=== PATIENT | female | born 1950 | race African-American/Black ===

== ENCOUNTER 2023-04-30 13:00 | Inpatient (IN) | payer OTHER ==
[~2023-04-30] VITALS: Ht 157.5 cm; Wt 65.8 kg
[2023-04-30 13:04] VITALS: BP 181/96; PULSE 79; RESP 17; TEMP 98.1; O2SAT 95
[2023-04-30 13:33] VITALS: O2SAT 95
[2023-04-30 14:22] LABS: BASOPHILS % (AUTO) 0.4 % (0.0-2.0); EOSINOPHILS # (AUTO) 0.1 K/uL (0-0.4); EOSINOPHILS % (AUTO) 1.2 % (0.0-4.0); HEMATOCRIT 42.1 % (36-48); HEMOGLOBIN 13.7 g/dL (12.0-16.0); MEAN CORPUSCULAR HEMOGLOBIN 28 pg (27-31); MEAN CORPUSCULAR HGB CONC 33 g/dL (33-37); MEAN CORPUSCULAR VOLUME 86.3 fL (80-94); MONOCYTES # (AUTO) 0.6 K/uL (0.8-1.0); NEUTROPHILS # (AUTO) 5.3 K/uL (1.8-7.7); NEUTROPHILS % (AUTO) 76.4 % (42.2-75.2); PLATELET COUNT (AUTO) 267 K/uL (140-450); RED BLOOD CELL COUNT(AUTO) 4.88 MIL/uL (4.20-5.40); RED CELL DISTRIBUTION WIDTH 13.4 % (11.6-13.7)
[2023-04-30 14:24] LABS: APPEARANCE,URINE CLEAR (CLEAR); BILIRUBIN,URINE 2+ (NEGATIVE); BLOOD, URINE 1+ (NEGATIVE); COLOR,URINE YELLOW (YELLOW); LEUKOCYTE ESTERASE ,URINE NEGATIVE (NEGATIVE); NITRITE, URINE NEGATIVE (NEGATIVE); PROTEIN,URINE 1+ (NEGATIVE); UGLUCOSE NEGATIVE (NEGATIVE)
[2023-04-30 14:39] LABS: ICTOTEST NEGATIVE (NEGATIVE); RBC,URINE 0-5 /HPF (0-5)
[2023-04-30 14:40] LABS: AMPHETAMINE, URINE NEGATIVE ng/ml (NEG <=1000); BACTERIA,URINE FEW /HPF (None Seen); BARBITURATE, URINE NEGATIVE ng/ml (NEG <=200); BENZODIAZEPINE, URINE NEGATIVE ng/mL (NEG <=200); CANNABINOID, URINE NEGATIVE ng/mL (NEG <=50); COCAINE, URINE NEGATIVE ng/mL (NEG <=300); OPIATE, URINE NEGATIVE ng/mL (NEG <=2000); PHENCYCLIDINE SCREEN,URINE NEGATIVE ng/mL (NEG <=25); SQUAMOUS EPITHELIAL CELL,UR 0-3 (FEW) /LPF (0-3 (FEW))
[2023-04-30 14:45] LABS: INR 1.03 (0.8-1.2); PARTIAL THROMBOPLASTIN TIME 27.1 secs (22-35.6); PROTHROMBIN TIME 10.8 secs (10.8-13.4)
[2023-04-30 15:04] LABS: LACTIC ACID 1.3 mmol/L (0.4-2.0)
[2023-04-30 15:24] LABS: ACETAMINOPHEN < 0.5 ug/ml (10-30); ALANINE AMINOTRANSFERASE 825 U/L (12-78); ALBUMIN 3.6 g/dL (3.4-5.0); ALCOHOL, BLOOD < 3 mg/dL (<10); ALKALINE PHOSPHATASE 100 U/L (50-136); ANION GAP 16.6 (8-16); ASPARTATE AMINOTRANSFERASE 280 U/L (15-37); CARBON DIOXIDE 25.6 mmol/L (21-32); CHLORIDE 101 mmol/L (98-107); CREATINE KINASE, TOTAL 114 U/L (26-192); CREATININE 0.7 mg/dL (0.6-1.3); GLUCOSE 91 mg/dL (74-106); MAGNESIUM 1.8 mg/dL (1.8-2.4); PHOSPHORUS 3.1 mg/dL (2.5-4.9); POTASSIUM 3.2 mmol/L (3.5-5.1); SALICYLATE < 2.8 mg/dL (2.8-20.0); SODIUM SERUM 140 mmol/L (136-145); THYROID STIMULATING HORMONE 0.72 uIU/mL (0.34-3.74); TOTAL PROTEIN, SERUM 7.8 g/dL (6.4-8.2); UREA NITROGEN, BLOOD 20 mg/dL (7-18)
[2023-04-30 15:31] VITALS: O2SAT 95
[2023-04-30 17:31] VITALS: O2SAT 99
[2023-04-30] MEDS: NACL 0.9% 1,000 ML IV SCH (18:52)
[2023-04-30] MEDS ORDERED: ONDANSETRON 4 MG/2 ML VIAL IVP PRN (19:00)
[2023-04-30] MEDS ORDERED: MORPHINE SULFATE 2 MG/ML SYR IVP PRN (19:00)
[2023-04-30] MEDS ORDERED: POTASSIUM CHLORIDE 10 MEQ TABER PO PRN (19:00)
[2023-04-30] MEDS ORDERED: MAG SULF 2000 MG/WATER PREMIX 50 ML IV PRN (19:00)
[2023-04-30] MEDS ORDERED: ACETAMINOPHEN 325 MG TAB PO PRN (19:00)
[2023-04-30] MEDS ORDERED: LORazepam 2 MG/ML VIAL IVP PRN (19:00)
[2023-04-30] MEDS ORDERED: DOCUSATE SODIUM 100 MG GELCAP PO PRN (19:00)
[2023-04-30] MEDS ORDERED: ZOLPIDEM 10 MG TAB PO PRN (19:00)
[2023-04-30 20:55] VITALS: BP 150/62; PULSE 61; RESP 18; TEMP 98.7; O2SAT 97
[2023-05-01 04:00] VITALS: BP 106/80; PULSE 66; RESP 16; TEMP 98.7; O2SAT 97
[2023-05-01] MEDS: NACL 0.9% 1,000 ML IV SCH ×2 (06:43→19:00)
[2023-05-01 06:51] LABS: BASOPHILS % (AUTO) 0.8 % (0.0-2.0); EOSINOPHILS # (AUTO) 0.2 K/uL (0-0.4); EOSINOPHILS % (AUTO) 4.4 % (0.0-4.0); HEMATOCRIT 37.2 % (36-48); LYMPHOCYTES # (AUTO) 1.2 K/uL (2.5-16.5); LYMPHOCYTES % (AUTO) 24.8 % (20.5-51.1); MEAN CORPUSCULAR HEMOGLOBIN 28 pg (27-31); MEAN CORPUSCULAR HGB CONC 32 g/dL (33-37); MEAN CORPUSCULAR VOLUME 86.1 fL (80-94); MONOCYTES # (AUTO) 0.6 K/uL (0.8-1.0); NEUTROPHILS # (AUTO) 2.9 K/uL (1.8-7.7); PLATELET COUNT (AUTO) 250 K/uL (140-450); RED BLOOD CELL COUNT(AUTO) 4.32 MIL/uL (4.20-5.40); RED CELL DISTRIBUTION WIDTH 13.7 % (11.6-13.7); WHITE BLOOD COUNT (AUTO) 4.9 K/uL (4.8-10.8)
[2023-05-01 06:52] LABS: ANION GAP 9.2 (8-16); CALCIUM 9.7 mg/dL (8.5-10.1); CARBON DIOXIDE 30.3 mmol/L (21-32); CHLORIDE 108 mmol/L (98-107); CREATININE 0.6 mg/dL (0.6-1.3); GLUCOSE 136 mg/dL (74-106); POTASSIUM 4.5 mmol/L (3.5-5.1); SODIUM SERUM 143 mmol/L (136-145); UREA NITROGEN, BLOOD 18 mg/dL (7-18)
[2023-05-01 07:11] LABS: BILIRUBIN,DIRECT 0.2 mg/dL (0.0-0.3); TOTAL BILIRUBIN 0.9 mg/dL (0.0-1.0); TOTAL PROTEIN, SERUM 6.7 g/dL (6.4-8.2)
[2023-05-01 08:00] VITALS: BP 150/62; PULSE 64; RESP 18; TEMP 98.7; O2SAT 97; O2SAT 98
[2023-05-01] MEDS: ARIPiprazole 10 MG TAB PO SCH (13:33)
[2023-05-01 16:00] VITALS: BP 110/80; PULSE 70; RESP 18; TEMP 98.5; O2SAT 99
[2023-05-01] MEDS: IBUPROFEN 400 MG TAB PO PRN (16:50)
[2023-05-01] MEDS ORDERED: MAGNESIUM OXIDE 400 MG TAB PO SCH (18:28)
[2023-05-01 20:00] VITALS: BP 146/88; PULSE 65; RESP 18; TEMP 97.7; O2SAT 99
[2023-05-02] MEDS: NACL 0.9% 1,000 ML IV SCH ×2 (03:57→20:31)
[2023-05-02 04:04] VITALS: BP 130/80; PULSE 62; RESP 18; TEMP 97; O2SAT 96
[2023-05-02 06:26] LABS: BASOPHILS % (AUTO) 0.8 % (0.0-2.0); EOSINOPHILS # (AUTO) 0.4 K/uL (0-0.4); EOSINOPHILS % (AUTO) 8.2 % (0.0-4.0); HEMATOCRIT 33.7 % (36-48); HEMOGLOBIN 11.1 g/dL (12.0-16.0); LYMPHOCYTES # (AUTO) 1.6 K/uL (2.5-16.5); LYMPHOCYTES % (AUTO) 36.6 % (20.5-51.1); MEAN CORPUSCULAR HEMOGLOBIN 28 pg (27-31); MEAN CORPUSCULAR HGB CONC 33 g/dL (33-37); MEAN CORPUSCULAR VOLUME 85.9 fL (80-94); MONOCYTES # (AUTO) 0.5 K/uL (0.8-1.0); MONOCYTES % (AUTO) 10.5 % (1.7-9.3); NEUTROPHILS # (AUTO) 1.9 K/uL (1.8-7.7); NEUTROPHILS % (AUTO) 43.9 % (42.2-75.2); PLATELET COUNT (AUTO) 237 K/uL (140-450); RED BLOOD CELL COUNT(AUTO) 3.92 MIL/uL (4.20-5.40); RED CELL DISTRIBUTION WIDTH 13.5 % (11.6-13.7); WHITE BLOOD COUNT (AUTO) 4.4 K/uL (4.8-10.8)
[2023-05-02 06:29] LABS: CALCIUM 9.4 mg/dL (8.5-10.1); CARBON DIOXIDE 29.5 mmol/L (21-32); CHLORIDE 108 mmol/L (98-107); CREATININE 0.5 mg/dL (0.6-1.3); GLUCOSE 120 mg/dL (74-106); POTASSIUM 3.5 mmol/L (3.5-5.1); SODIUM SERUM 144 mmol/L (136-145); UREA NITROGEN, BLOOD 12 mg/dL (7-18)
[2023-05-02 06:47] LABS: ALBUMIN 2.8 g/dL (3.4-5.0); BILIRUBIN,DIRECT 0.1 mg/dL (0.0-0.3); TOTAL BILIRUBIN 0.5 mg/dL (0.0-1.0); TOTAL PROTEIN, SERUM 6.2 g/dL (6.4-8.2)
[2023-05-02 08:00] VITALS: PULSE 61; RESP 16; O2SAT 97
[2023-05-02] MEDS: ARIPiprazole 10 MG TAB PO SCH (09:20)
[2023-05-02] MEDS: IBUPROFEN 400 MG TAB PO PRN ×2 (09:21→20:38)
[2023-05-02] MEDS ORDERED: ABI10 PO (19:55)
[2023-05-02 20:00] VITALS: BP 145/76; PULSE 65; RESP 17; TEMP 97.4; O2SAT 96
[2023-05-02 22:22] VITALS: BP 144/76; PULSE 67; RESP 18; TEMP 97.6
[2023-05-03] MEDS ORDERED: hydrALAZINE 20 MG/ML VIAL IVP ONE (01:20)
[2023-05-03] MEDS ORDERED: hydrALAZINE 20 MG/ML VIAL ONE (01:22)
[2023-05-03 01:30] VITALS: BP 199/99; PULSE 84
== END 2023-05-03 02:15 | disposition short-term general hospital (02) | DRG 641 ==
LOC: MED 13:00 → MTU 17:58
PROVIDERS: ADMIT General Practice; ATTEND General Practice
DX: E87.6 Hypokalemia (principal); I16.9 Hypertensive crisis, unspecified; E87.20 Acidosis, unspecified; R74.01 Elevation of levels of liver transaminase levels; F20.9 Schizophrenia, unspecified; G89.29 Other chronic pain; M54.9 Dorsalgia, unspecified; R62.7 Adult failure to thrive; Z20.822 Contact with and (suspected) exposure to COVID-19; Z68.26 Body mass index [BMI] 26.0-26.9, adult
CPT/HCPCS: 36415; 70450; 71045; 76705; 80048; 80053; 80076; 80305; 81001; 82140; 82550; 83036; 83605; 83735; 84100; 84443; 84484; 85025; 85610; 85730; 87040; 87081; 87086; 93005; 99285; G0480; G0482; J0360; J1644; J2060; J2270; Q0092